=== PATIENT | male | born 1940 | race Caucasian/White ===

== ENCOUNTER 2024-07-13 17:35 | Inpatient (IN) | payer OTHER ==
[~2024-07-13] VITALS: Ht 182.9 cm; Wt 71.4 kg
[2024-07-13] MEDS ORDERED: metoprolol er (18:00)
[2024-07-13] MEDS ORDERED: LEVO50TA5 PO (18:00)
[2024-07-13] MEDS ORDERED: TORS20TA2 PO (18:00)
[2024-07-13] MEDS ORDERED: FLOM0.4C39 PO (18:00)
[2024-07-13] MEDS ORDERED: FINA5TAB2 PO (18:00)
[2024-07-13] MEDS ORDERED: CITA20TA6 PO (18:00)
[2024-07-13] MEDS ORDERED: JARD1TAB PO (18:00)
[2024-07-13] MEDS ORDERED: ATOR1TAB19 PO (18:00)
[2024-07-13 18:40] LABS: BASO % 0.2 % (0.0-1.0); EOS # 0.1 10^3/uL (0.0-0.5); EOS % 0.6 % (0.0-3.0); HEMATOCRIT 37.3 % (42.0-52.0); HEMOGLOBIN 11.8 g/dl (13.5-17.5); LYMPH # 1.3 10^3/uL (1.5-5.0); LYMPH % 10.2 % (24.0-44.0); MEAN CORPUSCULAR HEMOGLOBIN 27.1 pg (27.0-33.0); MEAN CORPUSCULAR HGB CONC 31.6 g/dl (32.0-36.5); MEAN CORPUSCULAR VOLUME 85.7 fl (80.0-96.0); MONO # 0.9 10^3/uL (0.0-0.8); MONO % 7.2 % (2.0-8.0); PLATELET COUNT, AUTOMATED 529 10^3/uL (150-450); RED BLOOD COUNT 4.35 10^6/uL (4.30-6.10); WHITE BLOOD COUNT 12.4 10^3/uL (4.0-10.0)
[2024-07-13 19:06] LABS: CK-MB VALUE MASS 2.1 NG/ML (<3.6)
[2024-07-13 19:09] LABS: ALBUMIN 2.6 G/DL (3.2-5.2); BILIRUBIN,DIRECT 0.1 MG/DL (<0.4); BILIRUBIN,TOTAL 0.4 MG/DL (0.3-1.2); CALCIUM LEVEL 8.4 MG/DL (8.3-10.6); CREATININE FOR GFR 1.59 MG/DL (0.70-1.30); GLOMERULAR FILTRATION RATE 44.6 (>35); POTASSIUM SERUM 5.2 MMOL/L (3.5-5.1); TOTAL PROTEIN 6.3 G/DL (5.7-8.2)
[2024-07-13 19:10] LABS: FREE T4 1.16 NG/DL (0.89-1.76); THYROID STIMULATING HORMONE 8.393 uIU/ML (0.55-4.78)
[2024-07-13 19:11] LABS: MB/CK RELATIVE INDEX 4.77 (< OR =4)
[2024-07-13] MEDS: DEXTROSE 50% 50ML SYRINGE IV STA (19:42)
[2024-07-13] MEDS: HumuLIN R (REGULAR) INSULIN (NovoLIN R) **100U/ML** PER UNIT IV ONE (19:44)
[2024-07-13] MEDS: CALCIUM GLUCONATE 1,000 MG in DEXTROSE 5% (D5W) MINI-BAG PLU 100 ML IV ONE (19:45)
[2024-07-13] MEDS ORDERED: ACETAMINOPHEN 325 MG TAB PO PRN (20:55)
[2024-07-13] MEDS: FUROSEMIDE 40MG/4ML VIAL IV ONE ×2 (20:55→22:01)
[2024-07-13] MEDS ORDERED: METO1TAB32 PO (21:19)
[2024-07-13] MEDS ORDERED: HOME MED LIST COMPLETE! XX SCH (21:20)
[2024-07-13] MEDS ORDERED: THERTAB52 PO (21:20)
[2024-07-13] MEDS ORDERED: CYAN-11 PO (21:20)
[2024-07-13] MEDS: DOCUSATE SODIUM 100MG CAPSULE PO SCH (22:02)
[2024-07-14] VITALS (8 sets, daily range): BP systolic 100–118; BP diastolic 57–65; TEMP 97.5–98.2; O2SAT 94–98
[2024-07-14 04:53] LABS: BASO % 0.4 % (0.0-1.0); EOS # 0.1 10^3/uL (0.0-0.5); EOS % 1.1 % (0.0-3.0); HEMATOCRIT 38.1 % (42.0-52.0); HEMOGLOBIN 12.3 g/dl (13.5-17.5); LYMPH # 1.7 10^3/uL (1.5-5.0); LYMPH % 15.5 % (24.0-44.0); MEAN CORPUSCULAR HEMOGLOBIN 27.1 pg (27.0-33.0); MEAN CORPUSCULAR HGB CONC 32.3 g/dl (32.0-36.5); MEAN CORPUSCULAR VOLUME 83.9 fl (80.0-96.0); MONO % 8.7 % (2.0-8.0); NEUTROPHILS % 73.6 % (36.0-66.0); PLATELET COUNT, AUTOMATED 541 10^3/uL (150-450); RED BLOOD COUNT 4.54 10^6/uL (4.30-6.10); WHITE BLOOD COUNT 10.9 10^3/uL (4.0-10.0)
[2024-07-14 05:39] LABS: CALCIUM LEVEL 9.6 MG/DL (8.3-10.6); CREATININE FOR GFR 1.65 MG/DL (0.70-1.30); GLOMERULAR FILTRATION RATE 42.7 (>35); MAGNESIUM LEVEL 2.4 MG/DL (1.8-2.4); POTASSIUM SERUM 4.7 MMOL/L (3.5-5.1)
[2024-07-14] MEDS: LEVOTHYROXINE 50MCG TABLET (0.05MG) PO SCH (05:47)
[2024-07-14] MEDS: METOPROLOL SUCC *XL* 25MG TAB (TopROL *XL*) PO SCH (09:00)
[2024-07-14] MEDS: TAMSULOSIN 0.4 MG CAP PO SCH (09:29)
[2024-07-14] MEDS: FINASTERIDE 5MG TAB PO SCH (09:29)
[2024-07-14] MEDS: CitaloPRAM (CeleXA) 20 MG TAB PO SCH (09:29)
[2024-07-14] MEDS: ATORVASTATIN 10 MG TAB PO SCH (09:29)
[2024-07-14] MEDS: FUROSEMIDE 40MG/4ML VIAL IV SCH (09:30)
[2024-07-14 09:42] LABS: CK-MB VALUE MASS 1.6 NG/ML (<3.6)
[2024-07-14 09:43] LABS: MB/CK RELATIVE INDEX 4.1 (< OR =4)
[2024-07-14] MEDS: MIDODRINE 5 MG TAB PO ONE (17:10)
[2024-07-15 03:03] VITALS: BP 109/67; TEMP 96.9; O2SAT 93
[2024-07-15 06:19] LABS: BASO # 0.1 10^3/uL (0.0-0.2); BASO % 0.4 % (0.0-1.0); EOS # 0.2 10^3/uL (0.0-0.5); EOS % 1.5 % (0.0-3.0); HEMATOCRIT 39.2 % (42.0-52.0); HEMOGLOBIN 12.1 g/dl (13.5-17.5); LYMPH # 1.8 10^3/uL (1.5-5.0); LYMPH % 16.1 % (24.0-44.0); MEAN CORPUSCULAR HEMOGLOBIN 26.7 pg (27.0-33.0); MEAN CORPUSCULAR HGB CONC 30.9 g/dl (32.0-36.5); MEAN CORPUSCULAR VOLUME 86.3 fl (80.0-96.0); MONO % 9.2 % (2.0-8.0); NEUTROPHILS # 8.1 10^3/uL (1.5-8.5); PLATELET COUNT, AUTOMATED 546 10^3/uL (150-450); RED BLOOD COUNT 4.54 10^6/uL (4.30-6.10); WHITE BLOOD COUNT 11.3 10^3/uL (4.0-10.0)
[2024-07-15 06:44] LABS: CALCIUM LEVEL 8.5 MG/DL (8.3-10.6); CREATININE FOR GFR 1.97 MG/DL (0.70-1.30); GLOMERULAR FILTRATION RATE 34.8 (>35); POTASSIUM SERUM 4.8 MMOL/L (3.5-5.1)
[2024-07-15 07:48] VITALS: BP 119/67; TEMP 97.2; O2SAT 93
[2024-07-15] MEDS: FLUBLOK(EGGFREE) TRIVAL(24-25) VACCINE PF 0.5ML SYRINGE 18YRS & OLDER IM.IMMUN ONE (11:45)
[2024-07-15 12:00] VITALS: BP 103/57; TEMP 97.5; O2SAT 94
[2024-07-15 16:17] VITALS: BP 107/60; TEMP 97.9; O2SAT 94
[2024-07-15 19:49] VITALS: BP 132/74; TEMP 97.8; O2SAT 94
[2024-07-16 03:13] VITALS: BP 136/78; TEMP 97.9; O2SAT 93
[2024-07-16 06:37] LABS: BASO % 0.3 % (0.0-1.0); EOS # 0.2 10^3/uL (0.0-0.5); EOS % 1.5 % (0.0-3.0); HEMATOCRIT 37.1 % (42.0-52.0); HEMOGLOBIN 11.7 g/dl (13.5-17.5); LYMPH # 1.6 10^3/uL (1.5-5.0); LYMPH % 14.6 % (24.0-44.0); MEAN CORPUSCULAR HEMOGLOBIN 27.3 pg (27.0-33.0); MEAN CORPUSCULAR HGB CONC 31.5 g/dl (32.0-36.5); MEAN CORPUSCULAR VOLUME 86.5 fl (80.0-96.0); MONO % 9.3 % (2.0-8.0); NEUTROPHILS # 8.2 10^3/uL (1.5-8.5); NEUTROPHILS % 73.5 % (36.0-66.0); PLATELET COUNT, AUTOMATED 512 10^3/uL (150-450); RED BLOOD COUNT 4.29 10^6/uL (4.30-6.10); WHITE BLOOD COUNT 11.1 10^3/uL (4.0-10.0)
[2024-07-16 07:10] LABS: CALCIUM LEVEL 8.3 MG/DL (8.3-10.6); CREATININE FOR GFR 1.75 MG/DL (0.70-1.30); GLOMERULAR FILTRATION RATE 39.9 (>35); POTASSIUM SERUM 4.6 MMOL/L (3.5-5.1)
[2024-07-16] MEDS ORDERED: LORazepam 1 MG TAB PO PRN (08:10)
[2024-07-16] MEDS ORDERED: ONDANSETRON 4MG ORAL DISINTEGRATING TAB PO PRN (08:10)
[2024-07-16] MEDS ORDERED: SCOPOLAMINE 1MG TRANSDERMAL PATCH TOP PRN (08:10)
[2024-07-16] MEDS ORDERED: MORPHINE 10MG/0.5ML ORAL CONCENTRATE SOLUTION U/D SL PRN (08:10)
[2024-07-16] MEDS: FUROSEMIDE 40 MG TAB PO SCH (09:45)
[2024-07-17] MEDS: LEVOTHYROXINE 50MCG TABLET (0.05MG) PO SCH (06:12)
[2024-07-18] MEDS: LEVOTHYROXINE 50MCG TABLET (0.05MG) PO SCH (08:44)
[2024-07-20] MEDS ORDERED: ATIV1TAB10 PO (08:30)
[2024-07-20] MEDS ORDERED: MORP1SOL5 PO (08:30)
[2024-07-20] MEDS ORDERED: HYOS125TA PO (08:30)
[2024-07-20] MEDS ORDERED: ONDA-282 PO (08:32)
[2024-07-20] MEDS ORDERED: TRAN1DIS4 TOP (08:32)
[2024-07-20 08:36] VITALS: BP 115/58
== END 2024-07-20 09:45 | disposition hospice, inpatient (51) | DRG 292 ==
LOC: M ED 17:35 → M ED INP 20:52 → M PCU 07-14 05:33
PROVIDERS: ADMIT Internal Medicine Nephrology; ATTEND General Practice
PROC: B246ZZZ Ultrasonography of Right and Left Heart (ICD-10-PCS; principal; 2024-07-14)
DX: I50.23 Acute on chronic systolic (congestive) heart failure (principal); J98.11 Atelectasis; J90 Pleural effusion, not elsewhere classified; N17.9 Acute kidney failure, unspecified; N40.0 Benign prostatic hyperplasia without lower urinary tract symptoms; I34.0 Nonrheumatic mitral (valve) insufficiency; E87.5 Hyperkalemia; E11.22 Type 2 diabetes mellitus with diabetic chronic kidney disease; J43.9 Emphysema, unspecified; N18.30 Chronic kidney disease, stage 3 unspecified; F41.9 Anxiety disorder, unspecified; E53.8 Deficiency of other specified B group vitamins; I25.10 Atherosclerotic heart disease of native coronary artery without angina pectoris; E03.9 Hypothyroidism, unspecified; F03.90 Unspecified dementia, unspecified severity, without behavioral disturbance, psychotic disturbance, mood disturbance, and anxiety; Z51.5 Encounter for palliative care; Z66 Do not resuscitate; Z79.899 Other long term (current) drug therapy; Z79.890 Hormone replacement therapy; Z87.891 Personal history of nicotine dependence

== ENCOUNTER → 2025-04-11 | Outpatient (REF) | payer OTHER ==
[~2025-04-11] MED LIST: ATIV1TAB10 PO; ATOR1TAB19 PO; CITA20TA6 PO; CYAN-11 PO; FINA5TAB2 PO; HYOS125TA PO; JARD1TAB PO; LEVO50TA5 PO; METO1TAB32 PO; MORP1SOL5 PO; ONDA-282 PO; TAMS-18 PO; THERTAB52 PO; TORS20TA2 PO; TRAN1DIS4 TOP; metoprolol er
[2025-04-11 12:00] LABS: ALT/SGPT < 9 U/L (7.0-40); AST/SGOT 14 U/L (<34); CALCIUM LEVEL 8.3 MG/DL (8.3-10.6); CARBON DIOXIDE LEVEL 25 MMOL/L (20-31); CHLORIDE LEVEL 106 MMOL/L (98-107); CHOLESTEROL LEVEL 226 MG/DL (<200); CHOLESTEROL RISK RATIO 7.12 (<5); CREATININE FOR GFR 1.63 MG/DL (0.70-1.30); GLOMERULAR FILTRATION RATE 41.6 (>35); LDL CHOLESTEROL 158.7 MG/DL (<100); NON-HDL-C 194.3 MG/DL; POTASSIUM SERUM 5.4 MMOL/L (3.5-5.1); SODIUM LEVEL 141 MMOL/L (136-145); TRIGLYCERIDES LEVEL 178 MG/DL (<150)
[2025-04-11 13:11] LABS: ESTIMATED AVERAGE GLUCOSE 128.0 MG/DL (60-110)
== END ==
LOC: M LAB REF 10:35
PROVIDERS: ATTEND Family Medicine Addiction Medicine
DX: E11.9 Type 2 diabetes mellitus without complications (principal)

== ENCOUNTER → 2025-04-11 | Outpatient (REF) | payer OTHER ==
[2025-04-11 11:29] LABS: BASO # 0.0 10^3/uL (0.0-0.2); BASO % 0.3 % (0.0-1.0); EOS # 0.2 10^3/uL (0.0-0.5); EOS % 2.1 % (0.0-3.0); LYMPH # 1.9 10^3/uL (1.5-5.0); LYMPH % 16.1 % (24.0-44.0); MONO # 1.1 10^3/uL (0.0-0.8); MONO % 9.6 % (2.0-8.0); NEUTROPHILS # 8.2 10^3/uL (1.5-8.5); NEUTROPHILS % 70.5 % (36.0-66.0); PLATELET COUNT, AUTOMATED 343 10^3/uL (150-450)
[2025-04-11 12:00] LABS: ALT/SGPT 10 U/L (7.0-40); AST/SGOT 18 U/L (<34); CALCIUM LEVEL 8.5 MG/DL (8.3-10.6); CARBON DIOXIDE LEVEL 25 MMOL/L (20-31); CHLORIDE LEVEL 106 MMOL/L (98-107); CREATININE FOR GFR 1.61 MG/DL (0.70-1.30); GLOMERULAR FILTRATION RATE 42.2 (>35); POTASSIUM SERUM 5.6 MMOL/L (3.5-5.1); RHEUMATOID FACTOR QUANT 5.9 IU/ML (<14); SODIUM LEVEL 140 MMOL/L (136-145)
[2025-04-11 12:02] LABS: FREE T4 0.81 NG/DL (0.89-1.76); VITAMIN B12 LEVEL 361 PG/ML (211-911)
== END ==
LOC: M LAB REF 10:37
PROVIDERS: ATTEND Psychiatry & Neurology Neurology
DX: E07.9 Disorder of thyroid, unspecified (principal); E53.8 Deficiency of other specified B group vitamins; F03.90 Unspecified dementia, unspecified severity, without behavioral disturbance, psychotic disturbance, mood disturbance, and anxiety; E11.9 Type 2 diabetes mellitus without complications; Z11.3 Encounter for screening for infections with a predominantly sexual mode of transmission; Z72.89 Other problems related to lifestyle

== ENCOUNTER → 2025-04-15 | Outpatient (REF) | payer OTHER ==
[2025-04-18 02:48] LABS: VITAMIN E(ALPHA TOCOPHEROL) 16.0 mg/L (5.7-19.9); VITAMIN E(GAMMA TOCOPHEROL) 1.7 mg/L (<=4.3)
[2025-04-19 16:52] LABS: VITAMIN B6,PYRIDOXAL PHOSPHATE 4.9 ng/mL (2.1-21.7)
== END ==
LOC: M LAB REF 14:18
PROVIDERS: ATTEND Psychiatry & Neurology Neurology
DX: E07.9 Disorder of thyroid, unspecified (principal); D51.9 Vitamin B12 deficiency anemia, unspecified; F03.90 Unspecified dementia, unspecified severity, without behavioral disturbance, psychotic disturbance, mood disturbance, and anxiety; Z11.3 Encounter for screening for infections with a predominantly sexual mode of transmission